=== PATIENT | male | born 1990 | race Two or more races ===

== ENCOUNTER 2019-11-19 14:43 | Emergency (ER) | payer MEDICAID ==
[~2019-11-19] VITALS: Ht 175.3 cm; Wt 90.9 kg
[2019-11-19] MEDS ORDERED: acetaminophen 325mg tablet PO ONE (15:45)
[2019-11-19] MEDS ORDERED: amox tr/potassium clavulanate 875/125mg TAB PO ONE (15:45)
[2019-11-19 15:56] VITALS: BP 140/91
[2019-11-19] MEDS ORDERED: ACET-890 PO (15:57)
[2019-11-19] MEDS ORDERED: AMOX-117 PO (15:57)
== END 2019-11-19 16:11 | disposition home or self-care (01) ==
LOC: EDBD 14:44 → ER 14:44
DX: J03.90 Acute tonsillitis, unspecified (principal); R06.02 Shortness of breath; R50.9 Fever, unspecified
CPT/HCPCS: 71045; 99283